=== PATIENT | female | born 1960 | race Caucasian/White ===

== ENCOUNTER 2016-07-05 11:24 | Emergency (ER) | payer MEDICAID ==
[~2016-07-05] VITALS: Ht 165.1 cm; Wt 68.0 kg
[~2016-07-05 11:24] MED LIST: DEPAKOTE125 MG PO; LEVOTHYROXIN0.025 M3 PO; ZYPREXA2.5 MG PO
--- NOTE | 2016-07-05 11:24 | NUR ---
PT BIBA TO BED 2 AT THIS TIME.
[2016-07-05 11:28] VITALS: BP 127/73
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
[2016-07-05 12:36] VITALS: BP 122/76
--- NOTE | 2016-07-05 12:36 | NUR ---
Patient discharged with v/s stable. Written and verbal after care instructions given and explained. Patient alert, oriented and verbalized understanding of instructions. Ambulatory with to car. All questions addressed prior to discharge. ID band removed. Patient advised to follow up with PMD. Rx of PROMATHIZINE given. Patient educated on indication of medication including possible reaction and side effects. Opportunity to ask questions provided and answered. pt is waiting in [facility], will be picked up by LAUREN, a boarding staff.
== END 2016-07-05 12:36 | disposition home or self-care (01) ==
LOC: MED 11:24
DX: B34.9 Viral infection, unspecified (principal); E03.9 Hypothyroidism, unspecified; Z88.2 Allergy status to sulfonamides

== ENCOUNTER 2017-05-31 10:48 | Emergency (ER) | payer MEDICAID ==
[~2017-05-31] VITALS: Ht 165.1 cm; Wt 69.6 kg
[~2017-05-31 10:48] MED LIST changes: -DEPAKOTE125 MG PO; +DIVA125E3 PO; +LEVO0.0216 PO; -LEVOTHYROXIN0.025 M3 PO; +OLAN2.5T1 PO; -ZYPREXA2.5 MG PO
[2017-05-31 11:04] VITALS: BP 113/76
--- NOTE | 2017-05-31 11:25 | NUR ---
Patient ambulated to [facility] to be evaluated as fast track by Dr. Joiner. RN evaluating patient.
--- NOTE | 2017-05-31 11:32 | NUR ---
Patient being evaluated by Dr. Joiner in overflow chair.
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
[2017-05-31] MEDS ORDERED: QUET200T PO (11:46)
[2017-05-31] MEDS ORDERED: LEVO0.1331 PO (11:46)
[2017-05-31] MEDS ORDERED: DOCU-299 PO (11:46)
[2017-05-31] MEDS ORDERED: ATOR40TA PO (11:46)
[2017-05-31] MEDS ORDERED: DIVA500T1 PO (11:46)
[2017-05-31] MEDS ORDERED: IBUP-2213 PO (11:46)
[2017-05-31] MEDS ORDERED: TRAZ-286 PO (11:46)
[2017-05-31 13:20] VITALS: BP 108/61
--- NOTE | 2017-05-31 13:20 | NUR ---
Dr. Joiner made aware of HR 115. No new orders received. Dr. Joiner okayed patient to be discharged back to facility.
--- NOTE | 2017-05-31 13:20 | NUR ---
Patient discharged with v/s stable. Written and verbal after care instructions given and explained to caregiver. Ambulatory with steady gait. All questions addressed prior to discharge. ID band removed. Patient advised to follow up with PMD. Rx of Naproxen 500mg given. Patient educated on indication of medication including possible reaction and side effects. Opportunity to ask questions provided and answered.
== END 2017-05-31 13:20 | disposition home or self-care (01) ==
LOC: MED 10:48
DX: S05.11XA Contusion of eyeball and orbital tissues, right eye, initial encounter (principal); Z88.0 Allergy status to penicillin; Z88.2 Allergy status to sulfonamides; Z88.5 Allergy status to narcotic agent; W18.39XA Other fall on same level, initial encounter; Y93.89 Activity, other specified; Y92.89 Other specified places as the place of occurrence of the external cause; Y99.8 Other external cause status
CPT/HCPCS: 70450; 70486; 99284

== ENCOUNTER 2022-01-11 19:56 | Emergency (ER) | payer MEDICAID ==
[~2022-01-11] VITALS: Ht 162.6 cm; Wt 59.0 kg
[~2022-01-11 19:56] MED LIST changes: +ATOR40TA PO; -DIVA125E3 PO; +DIVA500T1 PO; +DOCU-299 PO; +IBUP-2213 PO; -LEVO0.0216 PO; +LEVO0.1331 PO; -OLAN2.5T1 PO; +QUET200T PO; +TRAZ-343 PO
[2022-01-11 19:58] VITALS: BP 129/70
--- NOTE | 2022-01-11 20:03 | NUR ---
pt taken to bed 7.
--- NOTE | 2022-01-11 20:03 | NUR ---
PT [facility] ER BED 7
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
[2022-01-11] MEDS ORDERED: KETOROLAC 60 MG/2 ML VIAL IM ONE (20:30)
[2022-01-11] MEDS ORDERED: IBUP-2213 PO (20:44)
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
--- NOTE | 2022-01-11 20:59 | NUR ---
PT STATED AHE WAS HUNGRY. PROVIDED TURKEY SANDWHICH AND SODA. HOB IN HIGH [place]OWLERS
[2022-01-11 22:15] VITALS: BP 124/71
--- NOTE | 2022-01-11 22:15 | NUR ---
Patient discharged with v/s stable. Written and verbal after care instructions given and explained. Patient alert, oriented and verbalized understanding of instructions. Ambulatory with steady gait. All questions addressed prior to discharge. ID band removed. Patient advised to follow up with PMD. Rx of IBUPROFEN given. Opportunity to ask questions provided and answered.
== END 2022-01-11 22:15 | disposition home or self-care (01) ==
LOC: MED 19:56
DX: S00.83XA Contusion of other part of head, initial encounter (principal); E03.9 Hypothyroidism, unspecified; F17.210 Nicotine dependence, cigarettes, uncomplicated; Z88.0 Allergy status to penicillin; Z88.2 Allergy status to sulfonamides; Z88.5 Allergy status to narcotic agent; Y04.8XXA Assault by other bodily force, initial encounter; Y93.89 Activity, other specified; Y92.89 Other specified places as the place of occurrence of the external cause; Y99.8 Other external cause status
CPT/HCPCS: 96372; 99283; J1885